=== PATIENT | male | born 1965 | race Hispanic/Latino ===

== ENCOUNTER 2019-05-02 10:29 | Outpatient (CLI) | payer OTHER | END 2019-05-02 10:30 | disposition home or self-care (01) | LOC: BUREKG 10:29 | PROVIDERS: ATTEND Family Medicine | DX: Z01.818 Encounter for other preprocedural examination (principal) | CPT/HCPCS: 93005; 93010 ==

== ENCOUNTER 2022-02-22 17:55 | Outpatient (CLI) | payer BC | END 2022-02-22 17:56 | disposition home or self-care (01) | LOC: BURRAD 17:55 | PROVIDERS: ATTEND Family Medicine | DX: L03.031 Cellulitis of right toe (principal); M19.071 Primary osteoarthritis, right ankle and foot; M20.11 Hallux valgus (acquired), right foot ==